=== PATIENT | female | born 1965 | race Caucasian/White ===

== ENCOUNTER 2016-07-11 11:47 | Day surgery (SDC) | payer BC ==
[~2016-07-11] VITALS: Ht 175.3 cm; Wt 77.1 kg
[~2016-07-11 11:47] MED LIST: ADVIL200 MG PO; VITAMIN D31000 UNI2 PO; ZOLOFT100 MG PO
[2016-07-11 12:20] VITALS: BP 144/62
[2016-07-11 15:30] VITALS: BP 141/62
[2016-07-11 16:00] VITALS: BP 115/58
== END 2016-07-11 16:12 | disposition home or self-care (01) ==
LOC: SDC 11:47
PROC: 0UBMXZX Excision of Vulva, External Approach, Diagnostic (ICD-10-PCS; principal; 2016-07-11)
DX: D07.1 Carcinoma in situ of vulva (principal); J44.9 Chronic obstructive pulmonary disease, unspecified; F41.9 Anxiety disorder, unspecified; E78.4 Other hyperlipidemia; E55.9 Vitamin D deficiency, unspecified; Z88.5 Allergy status to narcotic agent
CPT/HCPCS: 88305; J0131; J0690; J1100; J2250; J2405; J3010